=== PATIENT | male | born 1970 | race African-American/Black ===

== ENCOUNTER 2019-07-05 09:24 | Emergency (ER) | payer OTHER, SELFPAY ==
--- NOTE | ~2019-07-05 | XR_ITS ---
EXAMINATION: [id number] DATE: 07/05/2019 09:53 INDICATION: Right lateral rib pain. Fall from ladder. TECHNIQUE: A frontal view of the chest and 3 views of the right ribs were obtained. COMPARISON: None. FINDINGS: The chest demonstrates clear lungs without pneumonia, pleural effusion, or pneumothorax. Th e heart size is normal. IMPRESSION: 1. No rib fracture. Reviewed, dictated and finalized at location A. ECT BINDER OPERATOR IMPRESSION: 1. No rib fracture.
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
--- NOTE | ~2019-07-05 | XR_ITS ---
EXAMINATION: XR foot RT min 3V DATE: 07/05/2019 09:53 INDICATION: Right foot pain. Fall. TECHNIQUE: 4 views of right foot were obtained. COMPARISON: None. FINDINGS: Bone alignment is normal. No fracture. There is mild osteoarthritis of talonavicular joint. There is an enthesophyte at posterior aspect of calcaneal tuberosity. IMPRESSION: 1. No fracture. Reviewed, dictated and finalized at location A. WELL DIRECTIONAL SURVEYOR IMPRESSION: 1. No fracture.
--- NOTE | ~2019-07-05 | XR_ITS ---
EXAMINATION: XR ankle RT min 3V DATE: 07/05/2019 09:53 INDICATION: Right ankle pain. TECHNIQUE: 4 views of right ankle were obtained. COMPARISON: None. FINDINGS: Bone alignment is normal. No fracture. There is mild osteoarthritis of talonavicular joint. There is an enthesophyte at posterior aspect of calcaneal tuberosity. IMPRESSION: 1. No fracture. Reviewed, dictated and finalized at location A. R PROJECT MANAGER IMPRESSION: 1. No fracture.
[2019-07-05 09:24] VITALS: BP 142/92; PULSE 97; RESP 14; TEMP 36.6; O2SAT 98
[2019-07-05 09:34] VITALS: BP 142/94; PULSE 93; RESP 18; O2SAT 96
[2019-07-05 10:18] VITALS: BP 151/104; PULSE 92; RESP 18; O2SAT 98
--- NOTE | 2019-07-05 10:37 | ED.FALL ---
HPI - Fall General Chief Complaint: Fall Stated Complaint: FALL Time Seen by Provider: 07/05/19 09:25 Source: patient Mode of arrival: EMS Limitations: no limitations History of Present Illness HPI Narrative: Patient presents with chief complaint of headache, pain to right ribs and right ankle and foot after slipping on bolts on the floor his jaw prior to arrival. Patient states he slipped on the bolts and fell against the ladders on the wall, which then fell on the ground, then he fell on top of the ladders. Patient denies loss of consciousness, changes in vision or hearing, vomiting or bleeding from any of his orifices. Patient states that he fell at work approximately 1 week ago and hit his head. Patient states that a CT was performed he was diagnosed with concussion. Patient states that he followed up with Dr. Slaughter who released him back to work with restrictions. Patient reports minimal discomfort to right lower ribs. Patient denies shortness of breath or chest pain. Patient reports that he inverted his right ankle and reports pain to the lateral aspect of the ankle and foot. Patient denies any neurological deficits that contributed to his fall. Patient denies any neurological deficits at this time. Patient denies any neck or back pain or any other areas of discomfort. Related Data Allergies Allergy/AdvReac Type Severity Reaction Status Date / Time No Known Allergies Allergy Unverified 03/11/13 18:06 Review of Systems Review of Systems: Narrative: CONSTITUTIONAL: Denies fever, chills, or sweats. EYES: Denies visual changes, redness, or discharge. ENT: Denies rhinorrhea, congestion, sore throat, or otalgia. CARDIOVASCULAR: Denies chest pain, palpitations, or edema. RESPIRATORY: Denies cough or dyspnea. GASTROINTESTINAL: Denies abdominal pain, nausea, vomiting, or diarrhea. GENITOURINARY: Denies dysuria or hematuria. SKIN: Denies rash or itching. MUSCULOSKELETAL: Reports rib, ankle, and foot pain denies back pain, or myalgia. NEUROLOGIC: Reports headache, denies numbness, dizziness, or weakness. PSYCHIATRIC: Denies anxiety or depression. [facility] Social History Social History (Updated 07/05/19 @ 10:41 by David Yates PA-C) Smoking status: Never smoker Alcohol use details: none Substance use: never Gender identity (if verbalized by the patient): Male Exam Narrative: Exam Narrative: GENERAL: Well-appearing, well-nourished, and in no acute distress. HEAD: Normocephalic, atraumatic. No outward signs of hematoma, divots or injury. Mildly tender to palpation to posterior right aspect. EYES: PERRLA and EOMI. no hyphema ENT: Nares clear, no rhinorrhea or epistaxis. Mucous membranes moist. Oropharynx without tonsillar hypertrophy exudate or other lesions. Bilateral TMs pearly benito nonbulging. No hemotympanum NECK: Supple. No adenopathy or masses. No carotid bruits or JVD CHEST: Clear to auscultation. No respiratory distress. No wheezes rales or rhonchi. Very mild diffuse tenderness to lower right ribs. No flail chesting or abrasions noted. HEART: Regular rate and rhythm. No murmur heard. Normal peripheral pulses. ABDOMEN: Soft, nontender, nondistended, normal active bowel sounds. EXTREMITIES: Mildly tender to palpation to lateral aspect of right ankle and foot. No loss of range of motion. No ecchymosis, abrasions or lacerations noted. Normal range of motion. No edema. SKIN: Warm, dry, no rash. NEURO: No focal deficits. Alert and oriented x3. PSYCH: Normal mood and affect. Course Vital Signs Vital signs: Vital Signs Temperature 97.8 F 07/05/19 09:24 Pulse Rate 97 07/05/19 09:24 Respiratory Rate 14 07/05/19 09:24 Blood Pressure 142/92 H 07/05/19 09:24 Pulse Oximetry 98 07/05/19 09:24 Temperature 98.2 F 07/05/19 12:02 Pulse Rate 80 07/05/19 12:02 Respiratory Rate 18 07/05/19 12:02 Blood Pressure 138/88 07/05/19 12:02 Pulse Oximetry 98 07/05/19 12:02 MDM - Fall
[2019-07-05 10:51] VITALS: BP 157/91; PULSE 83; RESP 17; O2SAT 98
[2019-07-05] MEDS: KETOROLAC 15 MG/ML VIAL (*BKC) IV PUSH (12:01)
[2019-07-05 12:02] VITALS: BP 138/88; PULSE 80; RESP 18; TEMP 36.8; O2SAT 98
== END 2019-07-05 12:12 | disposition home or self-care (01) ==
PROVIDERS: Emergency Provider Family Medicine; PCP Internal Medicine
DX: S06.0X0A Concussion without loss of consciousness, initial encounter (principal); S20.211A Contusion of right front wall of thorax, initial encounter; S93.401A Sprain of unspecified ligament of right ankle, initial encounter; W18.09XA Striking against other object with subsequent fall, initial encounter
CPT/HCPCS: 70450; 71101; 73610; 73630; 96374; 99284; J1885

== ENCOUNTER 2019-07-10 14:34 | Outpatient (CLI) | payer OTHER, BC, SELFPAY ==
--- NOTE | ~2019-07-10 | XR_ITS ---
LUMBAR SPINE INDICATION: Status post recent fall TECHNIQUE: 3 views lumbar spine COMPARISON: None FINDINGS: No fracture, subluxation or dislocation. No evidence for spondylolysis or spondylolisthesi s. Vertebral bodies and disk spaces are preserved. IMPRESSION: 1: No significant abnormality of the lumbar spine identified. Reviewed, dictated and finalized at location B. RNET DATABASE SPECIALIST
== END 2019-07-10 14:35 | disposition home or self-care (01) ==
PROVIDERS: PCP Internal Medicine; Visit Provider Nurse Practitioner
DX: M54.9 Dorsalgia, unspecified (principal)
CPT/HCPCS: 72100

== ENCOUNTER 2020-05-27 09:00 | Outpatient (RCR) | payer OTHER, BC, SELFPAY ==
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
--- NOTE | 2020-03-13 14:34 | PCPTNOTE ---
Patient called & cancelled scheduled appointment this date due to having a LYONS.
--- NOTE | 2020-04-01 09:15 | PCPTNOTE ---
Patient did not show up for scheduled appointment this date. Called and spoke with Pt. Pt stated to have forgotten his appointment. Scheduled Pt for Apr 13 at 15:00.
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
--- NOTE | 2020-05-06 11:46 | PCPTNOTE ---
Patient called & cancelled scheduled appointment this date due to being out of town.
--- NOTE | 2020-05-13 13:44 | PCPTNOTE ---
Patient did not show up for scheduled appointment this date; called patient who stated thought his next appointment wasn't till the when looking at schedule noted there was an appointment today but completely forgot about it.
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
--- NOTE | 2020-06-03 08:23 | PCPTNOTE ---
Patient called & cancelled scheduled appointment this date due to back pain.
--- NOTE | 2020-06-05 14:44 | PCPTNOTE ---
This treatment is being continued on visit number 7 to [id number]. Please see documentation on both accounts to view progress. Completed interventions, outcomes, and problems have been marked as Inactive to facilitate the copying of the Care plan routine for recurring accounts.
== END 2020-06-05 13:48 | disposition home or self-care (01) ==
LOC: ANHPT 09:00
PROVIDERS: PCP Internal Medicine; Visit Provider Clinical Nurse Specialist
DX: M54.5 Low back pain (principal)
CPT/HCPCS: 97014; 97110; 97112; 97140; 97162; G0283

== ENCOUNTER 2020-06-10 09:03 | Outpatient (RCR) | payer BC, SELFPAY ==
--- NOTE | 2020-06-05 14:43 | PCPTNOTE ---
The treatment documented on this account is a continuation of the treatment documented on visit number 6 to [id number]. Please see documentation on both accounts to view progress. The Plan of Care has been transitioned and updated within the new V#. I have addressed and agree with the discipline specific Problems, Interventions, and Goals for the current certification period. Completed interventions, outcomes, and problems have been marked as Inactive to facilitate the copying of the Care plan routine for recurring accounts.
--- NOTE | 2020-06-10 10:36 | PCPTNOTE ---
Admitting Provider: Attending Provider: CLIFTON Lee Patient:Luis E Friend . Date of :1970 Discharge Note Patient has been seen for 7 therapy visits from 03/11/20 to 06/10/20 with 5 no show or cancelled visits. Pt demonstrates normal leg strength, 50% trunk flex and 100% trunk extension and lateral flex. He is able to perform daily ADL's and IADL's but with continued pain and c/o dizziness. Continued pain with trunk motion and with daily activities. He has been instructed in a HEP, but is not consistently performing to maintain level of function. His poor attendance with therapy has limited ability to progress his exercises. Self reported score on the Modified Oswestry improved from 48% impaired to 26% impaired The goals have been partially met at this time. He has reached maximal potential with skilled therapy services at this time. He has been released to return to work, but pt is requesting a work conditioning program prior to performing work duties. Recommendations on therapy clinics that perform this type of therapy was provided. DC skilled therapy services at this time. Thank you for referring this patient to [facility]. Please review, sign, date and return this discharge summary MARIANA. I have been updated about the patient's current status and I agree with discharge from the above service at this time. Referring Physician Date
== END 2020-06-11 09:28 | disposition home or self-care (01) ==
LOC: ANHPT 09:03
PROVIDERS: PCP Internal Medicine; Visit Provider Clinical Nurse Specialist
DX: M54.5 Low back pain (principal)
CPT/HCPCS: 97110